=== PATIENT | male | born 1980 | race African-American/Black ===

== ENCOUNTER 2018-12-30 05:33 | Emergency (ER) | payer SELFPAY ==
[~2018-12-30] VITALS: Ht 193 cm; Wt 101.0 kg
[2018-12-30 05:58] VITALS: BP 146/101
== END 2018-12-30 06:36 | disposition left against medical advice (07) ==
LOC: ER 05:33
DX: R06.00 Dyspnea, unspecified (principal); Z53.21 Procedure and treatment not carried out due to patient leaving prior to being seen by health care provider